=== PATIENT | male | born 1960 | race Caucasian/White ===

== ENCOUNTER 2018-06-04 07:39 | Day surgery (SDC) | payer BC, OTHER ==
[~2018-06-04 07:39] MED LIST: ALLERGY10 MG PO
== END 2018-06-04 22:48 | disposition home or self-care (01) ==
LOC: CT 07:39
DX: R06.09 Other forms of dyspnea (principal); R94.39 Abnormal result of other cardiovascular function study
CPT/HCPCS: 75574; Q9967